=== PATIENT | female | born 1980 | race African-American/Black ===

== ENCOUNTER 2018-02-06 14:38 | Outpatient (CLI) | payer OTHER | END 2018-02-06 14:39 | disposition home or self-care (01) | LOC: BICULT 14:38 | PROVIDERS: ATTEND Family Medicine | DX: Z34.82 Encounter for supervision of other normal pregnancy, second trimester (principal); N83.201 Unspecified ovarian cyst, right side; Z3A.19 19 weeks gestation of pregnancy | CPT/HCPCS: 76805 ==

== ENCOUNTER 2018-02-08 06:10 | Emergency (ER) | payer OTHER ==
[2018-02-08] MEDS ORDERED: Mag-Al 1200 mg/1200 mg/30 ML UDCUP ONE (06:54)
[2018-02-08] MEDS ORDERED: Lidocaine Viscous Sol 2% 15 ml UD Cup ONE (06:54)
== END 2018-02-08 07:10 | disposition home or self-care (01) ==
LOC: ERS 06:10
DX: O99.612 Diseases of the digestive system complicating pregnancy, second trimester (principal); K21.0 Gastro-esophageal reflux disease with esophagitis; O09.512 Supervision of elderly primigravida, second trimester; O99.512 Diseases of the respiratory system complicating pregnancy, second trimester; J45.909 Unspecified asthma, uncomplicated; Z3A.19 19 weeks gestation of pregnancy
CPT/HCPCS: 87081; 87430; 99283

== ENCOUNTER 2018-06-23 05:28 | Inpatient (IN) | payer OTHER ==
[2018-06-23] MEDS ORDERED: Lactated Ringer's 1,000 ML IV SCH (05:38)
[2018-06-23] MEDS ORDERED: Promethazine HCl 25 MG/ML VIAL IM PRN ×3 (05:38→16:42)
[2018-06-23] MEDS ORDERED: Bicitra 30 ML UDCUP PO SCH (05:38)
[2018-06-23] MEDS ORDERED: Ondansetron HCl/PF 4 MG/2 ML Vial IVP PRN ×5 (05:38→16:42)
[2018-06-23] MEDS ORDERED: CEFAZOLIN/Water 2 GM/20 ML SYRINGE SLOW IVP SCH (05:38)
[2018-06-23 06:20] LABS: Mean Corpuscular HGB CONC 32.5 g/dL (32.0-36.0); Mean Corpuscular Volume 80.1 fL (78.0-98.0); Mean Platelet Volume 10.5 fL (7.4-10.4); Platelet Count 173 thou/uL (130-400); RBC Distribution Width 13.8 % (11.5-14.5); Red Blood Cell (RBC) Count 4.24 mill/uL (4.20-5.40); White Blood Cell (WBC) Count 6.2 thou/uL (4.8-10.8)
[2018-06-23 06:55] LABS: Hep B Surf Ag Non-Reactive S/CO (NonReactive); Syphilis Antibody Nonreactive (Nonreactive); Syphilis Antibody Index 0.04 S/CO (<1.00 Non-Reactive)
[2018-06-23] MEDS ORDERED: Morphine PF 1 MG/ML SYR ONE (07:06)
[2018-06-23] MEDS ORDERED: Ketorolac Tromethamine 30 MG/ML VIAL ONE ×2 (07:07→12:57)
[2018-06-23] MEDS ORDERED: Oxytocin 10 UNITS/ML VIAL ONE ×2 (07:07→08:26)
[2018-06-23] MEDS ORDERED: Lidocaine 1% (PF) 30 ML VIAL ONE (07:09)
[2018-06-23] MEDS ORDERED: Bupivacaine 0.75% W/DEXTROSE 8.25% 2 ML AMP ONE (07:10)
[2018-06-23] MEDS ORDERED: PHENYLEPHRINE-NS 100 MCG/ML 10 ML SYRINGE ONE (07:19)
--- NOTE | 2018-06-23 07:38 | PDOC.EVN ---
Event Note - Event Note Event Note: OBGYN Travel Rn Or Note: PREOP NOTE Asked to assist with CS with Dr Heriberto Mayer, and asked to assist/perform the risk reducing salpingectomy. Consents and approvals obtained per Dr Heriberto Mayer. Please see Operative note for details.
[2018-06-23] MEDS ORDERED: Eucerin (Mineral Oil/Petrolatum,White) 30 gm Jar TOP PRN (08:29)
[2018-06-23] MEDS ORDERED: HYDROmorphone 2 MG/ML VIAL SLOW IVP PRN (08:29)
[2018-06-23] MEDS ORDERED: Ketorolac Tromethamine 30 MG/ML VIAL IVP PRN (08:29)
[2018-06-23] MEDS ORDERED: Promethazine HCl 25 MG SUPP PR PRN ×2 (08:29→16:42)
[2018-06-23] MEDS ORDERED: diphenhydrAMINE 50 MG/ML VIAL IVP PRN ×2 (08:29→16:42)
[2018-06-23] MEDS ORDERED: Naloxone HCl 0.4 mg/ml Vial IVP PRN ×2 (08:29)
[2018-06-23] MEDS ORDERED: Naloxone HCl 0.4 mg/ml Vial IV PRN ×3 (08:29→16:42)
[2018-06-23] MEDS ORDERED: Meperidine HCl/PF 25 MG/ML VIAL SLOW IVP PRN (08:29)
[2018-06-23] MEDS ORDERED: Ketorolac Tromethamine 30 MG/ML VIAL IVP SCH (08:30)
[2018-06-23] MEDS ORDERED: Communication Order-Pharmacy FS SCH (08:30)
[2018-06-23] MEDS ORDERED: Midazolam HCl 2 mg/2 ml Vial ONE (08:37)
--- NOTE | 2018-06-23 09:14 | OP ---
DATE OF PROCEDURE: 06/23/2018 TIME OF PARTICIPATION: Time of participation was roughly 0800 and then scrubbed out at 0850. [employer] SERVICE ADVISOR NOTE/RISK REDUCING SALPINGECTOMY NOTE In brief, I assisted with Dr. Anya Starr for a repeat low transverse via Pfannenstiel ski n incision on Ms. Calderon. She had a prior x1. She was at term. She also desired a risk reducing salpingectomy. DESCRIPTION OF PROCEDURE: In brief, we proceeded with a repeat Pfannenstiel skin incision after the patient's abdomen had been prepped and draped in the usual sterile fashion. A Pfannenstiel incision was done with a scalpel and Bovie cautery was used to dissect down to the level of the fascia and the fascia was cleaned off of any overlying fat. The fascia was entered in a transverse fashion. The rectus muscles were off the fascia both superiorly and inferiorly off the midline witho ut complications. It was here at this time that we noted deep solidified adhesions of the bladder vi sceral peritoneum to the anterior uterine serosa. This was mobilized free by myself with Dr. Starr as an research lab assistant. I use fine meticulous dissection with Metzenbaum scissors and blunt dissection as w ell to free the bladder off the lower uterine segment. No visceral injury was suspected. Once this was freed, we then placed an Stanislav O retractor into the wound for retraction. There was no further intra-abdominal adhesions and the adhesions seemed to be limited to the anterior uterine serosa and b ladder area. We then performed a low transverse hysterotomy with clear fluid noted and the baby was delivered without complication. It is important to note that the baby was delivered by vacuum assist ance as the baby's head was not engaged. One traction attempt without pop off was used to effect [place]. This was done in an atraumatic fashion. After the baby was delivered, cord was clamped, transected, and the baby handed to the NICU team, who was present for delivery and the baby was vigorous. The placenta was massaged out of the uterine ca vity and it was intact. The uterus was closed in situ with running locking suture. This was done wi thout complication. We then noted that the area of lysis of adhesions made the anterior lower uterin e segment serosa denuded. I attempted to reapproximate this area using #1 chromic ties in a figure-o f-eight fashion. We then turned attention towards the patient's tubes and in order to better mobiliz e the uterus, the Stanislav O retractor was taken out of the wound. I then performed a left mid to dist al salpingectomy for risk reduction. This was done with #1 chromic ties. No complications were note d. It was at this time, that we noted that the right ovary had a calcified lesion about 1 cm peduncu lated from the ovarian surface. This was enucleated off and suture ligated at the base with #1 chrom ic ties. No bleeding was noted and the ovarian stroma was not involved. A similar procedure was don e on the patient's right tube where a mid to distal salpingectomy was performed using #1 chromic ties . We also noted on the patient's right side that the patient had a 3 cm simple appearing cystic stru cture. This was drained with Bovie cautery, making a pinpoint opening on the serosa and clear fluid was expressed. This was not felt to be a suspicious lesion. I turned over the case to Dr. Rueda at 0850 who relieved me after the bilateral salpingectomy, left ovarian biopsy and right ovarian cyst drainage. PROCEDURES: 1. Repeat , low transverse . 2. Pfannenstiel skin incision. 3. Left ovarian lesion biopsy. 4. Bilateral risk reduction salpingectomy from the mid segment down to the fimbria. 5. Right ovarian cyst drainage. For the full details on this procedure, please see the remainder of the notes by Dr. Rueda and Dr. Lisa kahn. Once again, I was scrubbed out at approximately 0850 after the bilateral salpingectomy and th e procedures on the ovaries were performed.
[2018-06-23] MEDS ORDERED: Fentanyl 100 MCG/2 ML VIAL ONE (09:42)
--- NOTE | 2018-06-23 10:50 | OP ---
DATE OF PROCEDURE: 06/23/2018 PREOPERATIVE DIAGNOSES: Term intrauterine with previous section x1, and family hi story risk for ovarian and breast cancer. POSTOPERATIVE DIAGNOSES: Term intrauterine with previous section x1, and family h istory risk for ovarian and breast cancer, status post delivery with marked bladder to serosal uterin e adhesions. PROCEDURES PERFORMED: 1. Repeat low transverse section. 2. Risk reduction bilateral salpingectomy. 3. Lysis of adhesions. SURGEON: Anya Starr M.D. STOCK ASSOCIATE: Dr. Kishore Diaz, relieved mid surgery by Dr. Jan Rueda. ANESTHESIA: Spinal anesthetic. COMPLICATIONS: Include marked bladder to uterine adhesions. PROCEDURE IN DETAIL: After adequate spinal anesthetic, the patient was placed in the supine position . A Fung catheter was placed in the bladder. The abdomen was prepped and draped in the usual steri le technique. A Pfannenstiel incision was made through the old scar. Subcutaneous tissue opened wit h sharp dissection, fascia opened with sharp dissection. Peritoneum opened with sharp and blunt diss ection. It was noted that there were marked adhesions from the peritoneum to the bladder and from th e bladder to the serosa of the uterus. Please refer to operative note by Dr. Diaz for lysis of adhe sions. A Pfannenstiel incision was made in the inferior aspect of the uterus. Clear fluid was encou ntered and a viable female infant was delivered from vertex presentation with vacuum assist with 1 pu ll without difficulty. Infant breathed and cried spontaneously. Cord was clamped and cut after appr oximately 30 seconds. The baby was then handed to the care of the neonatology team. An intervening section of cord was excised for possible cord gases which eventually were not sent. The additional c ord blood was obtained. The placenta was delivered manually, appeared to be intact. The hysterotomy edges were grasped with ring forceps and the hysterotomy was then closed in one continuous fashion u sing 0 Monocryl. Noted that there was marked multiple areas of bleeding due to the lysis of adhesion s. Please refer to the notes by Dr. Diaz for closure of this area. The bilateral salpingectomy was then carried out by Dr. Diaz. Please refer to his operative note. In addition, there was noted to be a left calcified small ovarian mass as well as a right fluid filled adnexal cyst. Please refer t o Dr. Diaz's note for removal of this mass and puncture and drainage of the cyst. At this point, Dr Arsh Diaz was relieved by Dr. Jan Rueda. The wound was irrigated. The Stanislav O retractor had been removed and this was replaced for better visualization. There continued to be some areas of bleeding from the serosa of the uterus, multiple xgckge-bb-iqrgfs as well as running suture placed with 2-0 c hromic as well as FloSeal followed by Surgicel for adequate hemostasis. Gutters were checked. It wa s noted that hemostasis continued to remain adequate and the fascia was then closed in continuous fas hion using 0 Vicryl. Sponge and instrument counts were correct, 2-0 plain was then used to approxima te the subcutaneous tissue in a running fashion and the skin was closed in continuous fashion using 4 -0 Monocryl. The patient tolerated the procedure well to go to the recovery room in good condition. Noted the baby is a viable female infant, Apgars 8 at 1 minute, 9 at 5 minutes, weight 6 pounds 11 o unces, to go to level 1 nursery. QUANTITATIVE BLOOD LOSS: 930.
[2018-06-23] MEDS ORDERED: NS / Oxytocin 40 units/1000ml 1,000 ML ONE (11:03)
[2018-06-23] MEDS ORDERED: Lanolin Ointment 7 GM TUBE TOP PRN (12:37)
[2018-06-23] MEDS ORDERED: Acetaminophen 325 MG TAB PO PRN (12:37)
[2018-06-23] MEDS ORDERED: HYDROcodone/Acetaminophen 5/325 mg Tablet PO PRN ×2 (12:37→16:06)
[2018-06-23] MEDS ORDERED: Acetaminophen/Codeine 30-300mg Tablet PO PRN (12:37)
[2018-06-23] MEDS ORDERED: Ibuprofen 800 MG TAB PO SCH (14:00)
[2018-06-23 14:27] LABS: Hemoglobin 11.3 g/dL (12.0-16.0); Mean Corpuscular HGB CONC 30.6 g/dL (32.0-36.0); Mean Corpuscular Hemoglobin 24.7 pg (27.0-31.0); Mean Corpuscular Volume 80.7 fL (78.0-98.0); Mean Platelet Volume 9.8 fL (7.4-10.4); Platelet Count 143 thou/uL (130-400); RBC Distribution Width 13.9 % (11.5-14.5); Red Blood Cell (RBC) Count 4.58 mill/uL (4.20-5.40); White Blood Cell (WBC) Count 9.5 thou/uL (4.8-10.8)
[2018-06-23] MEDS ORDERED: Hydrocerin (Eucerin) Cream 120 gm Jar TOP PRN (16:42)
[2018-06-23] MEDS ORDERED: NO PO,IM,IV OR SC NARCOTICS FOR 12HR EXCEPT BY ANESTHESIA PO SCH (16:42)
[2018-06-23] MEDS: Ketorolac Tromethamine 30 MG/ML VIAL IVP PRN (16:50)
[2018-06-23 18:25] LABS: Hemoglobin 11.4 g/dL (12.0-16.0); Mean Corpuscular HGB CONC 31.6 g/dL (32.0-36.0); Mean Corpuscular Volume 82.1 fL (78.0-98.0); Platelet Count 154 thou/uL (130-400); White Blood Cell (WBC) Count 8.1 thou/uL (4.8-10.8)
[2018-06-23] MEDS: Ferrous Sulfate 325 MG TAB PO SCH (21:18)
[2018-06-23] MEDS: Docusate Calcium (SURFAK) 240 MG CAP PO SCH (21:18)
[2018-06-24] MEDS: Naloxone HCl 0.4 mg/ml Vial IV PRN ×2 (00:20→07:12)
[2018-06-24] MEDS: Ketorolac Tromethamine 30 MG/ML VIAL IVP PRN ×2 (00:24→06:30)
[2018-06-24] MEDS ORDERED: HYDROcodone/Acetaminophen 5/325 mg Tablet PO PRN (03:35)
[2018-06-24] MEDS ORDERED: Sodium Chloride 0.9% 10 ML ONE (06:29)
[2018-06-24 07:36] LABS: Hemoglobin 8.6 g/dL (12.0-16.0); Mean Corpuscular HGB CONC 31.4 g/dL (32.0-36.0); Mean Corpuscular Hemoglobin 25.5 pg (27.0-31.0); Mean Corpuscular Volume 81.1 fL (78.0-98.0); Mean Platelet Volume 9.1 fL (7.4-10.4); Platelet Count 138 thou/uL (130-400); Red Blood Cell (RBC) Count 3.39 mill/uL (4.20-5.40); White Blood Cell (WBC) Count 9.8 thou/uL (4.8-10.8)
--- NOTE | 2018-06-24 08:27 | ADD-OP ---
ADDENDUM DATE OF PROCEDURE: 06/23/2018. This is an addendum to the surgical note by Dr. Diaz. I entered the room after the patient's salpin gectomy had been completed, Dr. Diaz scrubbed out. Multiple adhesions were noted across the anterio r aspect of the uterus that it let this to some denudation of the serosa of the uterus and bleeding. Multiple fzadtyt-dh-dyejg of 0 chromic suture were used to achieve hemostasis. Three syringes of Fl oSeal were applied to different areas and pressure held for 3 minutes with a moist sponge. Surgicel was then applied as well. Once hemostasis was assured, the fascia was reapproximated using a running continuous 0 PDS suture. The subcutaneous tissue reapproximated by Dr. Anya Starr and the skin lana sed by Dr. Anya Starr. Please see her note. ESTIMATED BLOOD LOSS: QBL per Dr. Starr and Dr. Diaz's note.
[2018-06-24 08:42] VITALS: BMI 41.8
[2018-06-24] MEDS: Docusate Calcium (SURFAK) 240 MG CAP PO SCH ×2 (09:26→21:32)
[2018-06-24] MEDS: Prenatal Vitamin 1 TAB PO SCH (09:27)
[2018-06-24] MEDS: Ferrous Sulfate 325 MG TAB PO SCH ×2 (09:27→21:30)
[2018-06-24] MEDS: Acetaminophen/Codeine 30-300mg Tablet PO PRN ×2 (09:37→20:44)
[2018-06-24] MEDS: Simethicone Chewable 80 MG TAB PO PRN ×3 (09:38→20:01)
[2018-06-24] MEDS: Ibuprofen 800 MG TAB PO SCH ×2 (15:03→21:39)
[2018-06-25] MEDS: Ibuprofen 800 MG TAB PO SCH ×3 (06:24→21:28)
[2018-06-25] MEDS: Ferrous Sulfate 325 MG TAB PO SCH ×2 (07:39→22:16)
[2018-06-25] MEDS: Docusate Calcium (SURFAK) 240 MG CAP PO SCH ×2 (09:08→21:28)
[2018-06-25] MEDS: Prenatal Vitamin 1 TAB PO SCH (09:08)
[2018-06-25] MEDS: Acetaminophen/Codeine 30-300mg Tablet PO PRN ×3 (09:11→21:29)
[2018-06-25] MEDS: Simethicone Chewable 80 MG TAB PO PRN (21:28)
[2018-06-26] MEDS: Ibuprofen 800 MG TAB PO SCH ×2 (05:39→14:35)
[2018-06-26] MEDS: Acetaminophen/Codeine 30-300mg Tablet PO PRN ×3 (05:39→14:31)
[2018-06-26 08:31] VITALS: BP 121/75; TEMP 98.7
[2018-06-26] MEDS: Ferrous Sulfate 325 MG TAB PO SCH (09:07)
[2018-06-26] MEDS: Docusate Calcium (SURFAK) 240 MG CAP PO SCH (09:07)
[2018-06-26] MEDS: Simethicone Chewable 80 MG TAB PO PRN (09:07)
[2018-06-26] MEDS: Prenatal Vitamin 1 TAB PO SCH (09:09)
== END 2018-06-26 15:10 | disposition home or self-care (01) | DRG 766 ==
LOC: L&D 05:28 → 3SW 13:36 → EDSTATUS 13:44
PROVIDERS: ADMIT Family Medicine; ATTEND Family Medicine
PROC: 10D00Z1 Extraction of Products of Conception, Low, Open Approach (ICD-10-PCS; principal; 2018-06-23)
PROC: 0UB70ZZ Excision of Bilateral Fallopian Tubes, Open Approach (ICD-10-PCS; 2018-06-23)
PROC: 0DNW0ZZ Release Peritoneum, Open Approach (ICD-10-PCS; 2018-06-23)
PROC: 0UB10ZX Excision of Left Ovary, Open Approach, Diagnostic (ICD-10-PCS; 2018-06-23)
PROC: 0U900ZZ Drainage of Right Ovary, Open Approach (ICD-10-PCS; 2018-06-23)
DX: O34.211 Maternal care for low transverse scar from previous cesarean delivery (principal); Z3A.39 39 weeks gestation of pregnancy; Z37.0 Single live birth; Z40.03 Encounter for prophylactic removal of fallopian tube(s); O99.824 Streptococcus B carrier state complicating childbirth; O99.89 Other specified diseases and conditions complicating pregnancy, childbirth and the puerperium; O12.04 Gestational edema, complicating childbirth; O34.83 Maternal care for other abnormalities of pelvic organs, third trimester; N83.9 Noninflammatory disorder of ovary, fallopian tube and broad ligament, unspecified; N83.201 Unspecified ovarian cyst, right side; N73.6 Female pelvic peritoneal adhesions (postinfective); Z80.41 Family history of malignant neoplasm of ovary; Z80.3 Family history of malignant neoplasm of breast
CPT/HCPCS: 36415; 51702; 85027; 86780; 86850; 86900; 86901; 87340; 88302; 88304; 88305; A4216; J1200; J1885; J2001; J2250; J2274; J2310; J2590; J3010; J3490

== ENCOUNTER 2018-08-30 15:01 | Emergency (ER) | payer OTHER, SELFPAY ==
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
== END 2018-08-30 16:01 | disposition home or self-care (01) ==
LOC: ERS 15:01
DX: S13.4XXA Sprain of ligaments of cervical spine, initial encounter (principal); J45.909 Unspecified asthma, uncomplicated; V43.52XA Car driver injured in collision with other type car in traffic accident, initial encounter
CPT/HCPCS: 72125

== ENCOUNTER 2019-01-10 12:53 | Emergency (ER) | payer OTHER, SELFPAY ==
--- NOTE | 2019-01-10 13:41 | RAD ---
EXAM: Cervical spine radiographs 3 views PROVIDED CLINICAL HISTORY: Neck pain COMPARISON: None FINDINGS: There is no evidence for fracture or traumatic subluxation, with limitations in evaluating the odonto id. No prevertebral soft tissue swelling apparent. Visualized lung apices appear clear. IMPRESSION: As above.
[2019-01-10] MEDS ORDERED: Acetaminophen 500 MG TAB ONE (13:43)
== END 2019-01-10 13:49 | disposition home or self-care (01) ==
LOC: ERS 12:53
DX: S13.9XXA Sprain of joints and ligaments of unspecified parts of neck, initial encounter (principal); J45.909 Unspecified asthma, uncomplicated; Z79.1 Long term (current) use of non-steroidal anti-inflammatories (NSAID); V43.92XA Unspecified car occupant injured in collision with other type car in traffic accident, initial encounter
CPT/HCPCS: 72040

== ENCOUNTER 2019-07-27 08:38 | Emergency (ER) | payer OTHER, SELFPAY ==
[2019-07-27] MEDS ORDERED: Ketorolac Tromethamine 60 MG/2 ML VIAL ONE (10:30)
[2019-07-27] MEDS ORDERED: Dexamethasone 4 mg/ml Vial ONE (10:30)
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
== END 2019-07-27 11:43 | disposition home or self-care (01) ==
LOC: ERS 08:38
DX: M62.838 Other muscle spasm (principal); J45.909 Unspecified asthma, uncomplicated
CPT/HCPCS: 72100; 96372; 99283; J1100; J1885

== ENCOUNTER 2019-10-29 07:44 | Outpatient (CLI) | payer OTHER ==
--- NOTE | 2019-10-29 08:50 | MMO ---
Bilateral MAMMO Bilat Screen [facility]. CLINICAL HISTORY: Patient is 39 years old and is seen for screening. The patient has no family history of breast cancer. The patient has no personal history of cancer. VIEWS: The views performed were: bilateral craniocaudal with tomosynthesis and bilateral mediolateral oblique with tomosynthesis. This study has been interpreted with the assistance of computer-aided detection. MAMMOGRAM FINDINGS: There are scattered fibroglandular densities. Finding 1: There is a focal asymmetry measuring 6 millimeters with indistinct margins seen in the CC view only seen in the outer region of the right breast. Finding 2: There is a focal asymmetry measuring 6 millimeters with indistinct margins seen in the MLO view only seen in the upper region of the left breast. IMPRESSION: FINDING 1: FOCAL ASYMMETRY IN THE RIGHT BREAST REQUIRES ADDITIONAL EVALUATION. ADDITIONAL PROJECTIONS (RIGHT CRANIOCAUDAL SPOT COMPRESSION; RIGHT MEDIOLATERAL; RIGHT ROLLED LATERAL; AND RIGHT ROLLED MEDIAL) ARE RECOMMENDED. AN ULTRASOUND EXAM IS RECOMMENDED IF NEEDED. ADDITIONAL IMAGING. FINDING 2: FOCAL ASYMMETRY IN THE LEFT BREAST REQUIRES ADDITIONAL EVALUATION. ADDITIONAL PROJECTIONS (LEFT MEDIOLATERAL OBLIQUE SPOT COMPRESSION AND LEFT MEDIOLATERAL) ARE RECOMMENDED. AN ULTRASOUND EXAM IS RECOMMENDED IF NEEDED. ADDITIONAL IMAGING. THE RESULTS OF THIS EXAM WERE SENT TO THE PATIENT. ACR BI-RADS Category 0 - Incomplete: Need additional imaging evaluation. [facility] will notify the patient of the need for additional imaging services. MAMMOGRAPHY NOTE: 1. A negative mammogram report should not delay a biopsy if a dominant of clinically suspicious mass is present. 2. Approximately 10% to 15% of breast cancers are not detected by mammography. 3. Adenosis and dense breasts may obscure an underlying neoplasm. Reported by: GADIEL VEGA MD Electonically Signed: [id number]
== END 2019-10-29 07:45 | disposition home or self-care (01) ==
LOC: BICMAMMO 07:44
PROVIDERS: ATTEND Family Medicine
DX: Z12.31 Encounter for screening mammogram for malignant neoplasm of breast (principal); N64.89 Other specified disorders of breast; R92.8 Other abnormal and inconclusive findings on diagnostic imaging of breast
CPT/HCPCS: 77063; 77067

== ENCOUNTER 2019-11-02 08:07 | Outpatient (CLI) | payer OTHER ==
--- NOTE | 2019-11-02 11:44 | ULT ---
BILATERAL BREAST ULTRASOUND: HISTORY: Abnormal mammogram. FINDINGS: Correlation is made with mammograms of 11/02/2019 and 10/29/2019. There is a well-circumscribed nonshadowing hypoechoic nodule at the 8 o'clock position of the right b reast measuring 4 x 3 x 3 mm and a similar nodule at the 12 o'clock position of the left breast measu ring 4 x 3 x 2 mm likely corresponding to the mammographic findings. IMPRESSION: BIRADS category 3 - probably benign findings. A followup mammogram and ultrasound is recommended in 6 months. POS: OFF
--- NOTE | 2019-11-04 10:13 | MMO ---
Bilateral Kobe 3D Diag Additional Views Toni W CAD. CLINICAL HISTORY: Patient is 39 years old and is seen for diagnostic exam. The patient has no family history of breast cancer. The patient has no personal history of cancer. VIEWS: The views performed were: . FILMS COMPARED: The present examination has been compared to a prior imaging study performed at [facility] on 10/29/2019. This study has been interpreted with the assistance of computer-aided detection. Standard digital mammography was supplemented by the acquisition of digital breast tomosynthesis. MAMMOGRAM FINDINGS: There are scattered fibroglandular densities. Additional views were performed. Findings apperar to mildly persist. US was performed. IMPRESSION: FINDINGS IN BOTH BREASTS ARE PROBABLY BENIGN. FOLLOW-UP IN 6 MONTHS IS RECOMMENDED. ACR BI-RADS Category 3 - Probably benign finding - short interval follow-up suggested. [facility] will notify the patient of the need for additional imaging services. MAMMOGRAPHY NOTE: 1. A negative mammogram report should not delay a biopsy if a dominant of clinically suspicious mass is present. 2. Approximately 10% to 15% of breast cancers are not detected by mammography. 3. Adenosis and dense breasts may obscure an underlying neoplasm. Reported by: CAREN WHITFIELD MD Electonically Signed: [id number]
== END 2019-11-02 08:08 | disposition home or self-care (01) ==
LOC: BICMAMMO 08:07
PROVIDERS: ATTEND Family Medicine
DX: R92.2 Inconclusive mammogram (principal)
CPT/HCPCS: 77066; G0279

== ENCOUNTER 2020-09-08 10:00 | Outpatient (CLI) | payer OTHER ==
--- NOTE | 2020-09-08 13:22 | ULT ---
RIGHT BREAST ULTRASOUND: Date: 09/08/2020 HISTORY: Patient returns for follow-up imaging of right breast density. COMPARISON: 11/02/2019. FINDINGS: The right breast is evaluated at the 8 o'clock position, approximately 5.0 cm from the nipple. There is a somewhat linear cystic/hypoechoic focus which elongates and may represent a branching duct. This is less well defined than on the prior study. The nodular component of this is smaller and less prom inent than on the prior study. IMPRESSION: Probable branching duct in the 8 o'clock aspect of the right breast, 5.0 cm from the nipple, correspo nding to the previous nodular area. This is less prominent than on the prior study. BI-RADS Category 2 - Benign findings. Continue annual follow-up screening mammograms. POS: OFF
--- NOTE | 2020-09-08 13:23 | ULT ---
LEFT BREAST ULTRASOUND: Date: 09/08/2020 HISTORY: Follow-up nodular area. FINDINGS: The left breast is evaluated at approximately the 12 o'clock position, 6.0 cm from the nipple. The no dular density seen on the prior study in this region is no longer demonstrated. No evidence for solid or cystic mass. IMPRESSION: Unremarkable left breast ultrasound at 12 o'clock, 6.0 cm from the nipple. No evidence for solid or c ystic mass. The previously noted hypoechoic focus is no longer visualized. Recommend follow-up routine screening annual mammograms. POS: OFF
== END 2020-09-08 10:01 | disposition home or self-care (01) ==
LOC: BICMAMMO 10:00
PROVIDERS: ATTEND Family Medicine
DX: N63.0 Unspecified lump in unspecified breast (principal)
CPT/HCPCS: 77066; G0279

== ENCOUNTER 2020-09-27 10:30 | Emergency (ER) | payer OTHER ==
[2020-09-27 18:08] LABS: SARS-CoV-2 MS2 Positive; SARS-CoV-2 N Gene Negative; SARS-CoV-2 S Gene Negative; SARS-CoV-2 by NAA Not Detected (NotDetected); SARS-CoV-2 orf1ab Negative
== END 2020-09-27 11:00 | disposition home or self-care (01) ==
LOC: ERS 10:30
DX: R09.81 Nasal congestion (principal); R05 Cough; R51.9 Headache, unspecified; J34.89 Other specified disorders of nose and nasal sinuses; J45.909 Unspecified asthma, uncomplicated; Z20.828 Contact with and (suspected) exposure to other viral communicable diseases
CPT/HCPCS: 87635; 99283; U0003

== ENCOUNTER 2021-01-21 07:11 | Emergency (ER) | payer OTHER ==
[2021-01-21 11:59] LABS: SARS-CoV-2 NAA Rapid Test Not Detected (NotDetected)
== END 2021-01-21 08:01 | disposition home or self-care (01) ==
LOC: ERS 07:11
DX: Z20.822 Contact with and (suspected) exposure to COVID-19 (principal); J45.909 Unspecified asthma, uncomplicated
CPT/HCPCS: 0240U; 99283

== ENCOUNTER 2021-02-06 09:15 | Outpatient (CLI) | payer OTHER | END 2021-02-06 09:16 | disposition home or self-care (01) | LOC: DTY/OP 09:15 | PROVIDERS: ATTEND Specialist | DX: Z01.818 Encounter for other preprocedural examination (principal); E66.01 Morbid (severe) obesity due to excess calories | CPT/HCPCS: 97802 ==

== ENCOUNTER 2021-02-10 08:39 | Outpatient (CLI) | payer OTHER | END 2021-02-10 08:40 | disposition home or self-care (01) | LOC: DTY/OP 08:39 | PROVIDERS: ATTEND Family Medicine | DX: Z01.818 Encounter for other preprocedural examination (principal); E66.01 Morbid (severe) obesity due to excess calories; Z68.41 Body mass index [BMI] 40.0-44.9, adult | CPT/HCPCS: 97802 ==

== ENCOUNTER 2021-02-16 14:30 | Outpatient (CLI) | payer OTHER | END 2021-02-16 14:31 | disposition home or self-care (01) | LOC: DTY/OP 14:30 | PROVIDERS: ATTEND Specialist | DX: Z01.818 Encounter for other preprocedural examination (principal); E66.01 Morbid (severe) obesity due to excess calories | CPT/HCPCS: 97802 ==

== ENCOUNTER 2021-02-17 14:30 | Outpatient (CLI) | payer OTHER | END 2021-02-17 14:31 | disposition home or self-care (01) | LOC: DTY/OP 14:30 | PROVIDERS: ATTEND Specialist | DX: Z01.818 Encounter for other preprocedural examination (principal); E66.01 Morbid (severe) obesity due to excess calories | CPT/HCPCS: 97802 ==

== ENCOUNTER 2023-10-11 08:57 | Outpatient (CLI) | payer BC | END 2023-10-11 08:58 | disposition home or self-care (01) | LOC: BICRAD 08:57 | PROVIDERS: ATTEND Family Medicine | DX: S39.012A Strain of muscle, fascia and tendon of lower back, initial encounter (principal) | CPT/HCPCS: 72100 ==

== ENCOUNTER 2024-07-04 11:35 | Emergency (ER) | payer BC ==
[2024-07-04] MEDS ORDERED: Methocarbamol 500 MG TAB ONE (11:57)
== END 2024-07-04 12:50 | disposition home or self-care (01) ==
LOC: ERS 11:35
DX: M54.6 Pain in thoracic spine (principal)
CPT/HCPCS: 99282